=== PATIENT | female | born 1995 | race Caucasian/White ===

== ENCOUNTER 2016-02-23 16:51 | Emergency (ER) | payer OTHER ==
[2016-02-23 17:36] VITALS: O2SAT 99
[2016-02-23] MEDS ORDERED: AZITHROMYCIN 250 MG TAB PO ONE (18:05)
[2016-02-23 18:06] VITALS: BP 108/67; PULSE 64; RESP 16; TEMP 99
--- NOTE | 2016-02-23 18:09 | UCPHY ---
H & P Patient Type: New Chief Complaint Nursing Narrative: sore throat for 3 days Time Seen by Provider: 02/23/16 17:59 HPI/ROS: CHIEF COMPLAINT: Pharyngitis HISTORY OF PRESENT ILLNESS: The patient is a 21-year-old female who comes to the Urgent Care complaining of a sore throat, fevers, chills and painful swelling. No runny nose, cough difficulty breathing, no chest pain, no abdominal pain and vomiting. Nursing , no urinary symptoms. She states that her symptoms are similar to a few years ago when she had strep throat. She also has had mono in the past. REVIEW OF SYSTEMS: Constitutional: denies: chills, fever, recent illness, recent injury EENTM: See HPI Respiratory: denies: cough, shortness of breath Cardiac: denies: chest pain, irregular heart rate, lightheadedness, palpitations Gastrointestinal/Abdominal: denies: abdominal pain, diarrhea, nausea, vomiting, blood streaked stools Genitourinary: denies: dysuria, frequency, hematuria, pain Musculoskeletal: denies: joint pain, muscle pain Skin: denies: lesions, rash, jaundice, bruising Neurological: denies: headache, numbness, paresthesia, tingling, dizziness, weakness Hematologic/Lymphatic: denies: blood clots, easy bleeding, easy bruising Immunologic/allergic: denies: HIV/AIDS, transplant EXAM: GENERAL: Well-appearing, well-nourished and in no acute distress. HEAD: Atraumatic, normocephalic. EYES: Pupils equal round and reactive to light, extraocular movements intact, sclera anicteric, conjunctiva are normal. ENT: Purulent tonsils with mild swelling and erythema. NECK: Normal range of motion, supple without lymphadenopathy or JVD. LUNGS: Breath sounds clear to auscultation bilaterally and equal. No wheezes rales or rhonchi. HEART: Regular rate and rhythm without murmurs, rubs or gallops. ABDOMEN: Soft, nontender, normoactive bowel sounds. No guarding, no rebound. No masses appreciated. No splenomegaly. BACK: No CVA tenderness, no spinal tenderness, step-offs or deformities EXTREMITIES: Normal range of motion, no pitting or edema. No clubbing or cyanosis. NEUROLOGICAL: Cranial nerves II through XII grossly intact. Normal speech, normal gait. 5/5 strength, normal movement in all extremities, normal sensation PSYCH: Normal mood, normal affect. SKIN: Warm, dry, normal turgor, no visible rashes or lesions. Source: Patient Exam Limitations: No limitations - Personal History LMP (Females 10-55): 15-21 Days Ago Current Tetanus Diphtheria and Acellular Pertussis (TDAP): Yes Tetanus Vaccine Date: unsure - Medical/Surgical History Hx Asthma: No Hx Chronic Respiratory Disease: No Hx Diabetes: No Hx Cardiac Disease: No Hx Renal Disease: No Hx Cirrhosis: No Hx Alcoholism: No Hx HIV/AIDS: No Hx Splenectomy or Spleen Trauma: No Other PMH: depression/patient seen here on 07/15/14 for herpes simplex virus genitalia, strep throat - Family History Significant Family History: No pertinent family hx - Social History Smoking Status: Never smoked Alcohol Use: Sober Drug Use: None Constitutional: Initial Vital Signs Temperature (C) 36.9 C 02/23/16 17:31 Heart Rate 61 02/23/16 17:31 Respiratory Rate 12 02/23/16 17:31 Blood Pressure 105/59 L 02/23/16 17:31 O2 Sat (%) 99 02/23/16 17:31 O2 Delivery Mode Room Air Allergies/Adverse Reactions: No Known Allergies Allergy (Verified 02/23/16 17:30) Home Medications: Medication Instructions Recorded CeleXA 20 MG 07/15/14 Famciclovir [Famvir 250 MG (*)] 1 tab PO TID #20 tab 07/15/14 AZITHROMYCIN [Z-PACK] 250 mg PO DAILY #4 tab 02/23/16 Medical Decision Making ED Course/Re-evaluation: The patient's symptoms are consistent with strep throat. Rapid strep is negative but we have had any false negatives recently. She states that this feels similar to previous episodes of strep throat. Will start her on azithromycin. She is agreeable with this plan. She declines pain medication. We discussed indications for returning. Additional verbal discharge instructions given. Differential Diagnosis: Partial list of the Differential diagnosis considered include but were not limited to; strep throat, pharyngitis, abscess and although unlikely based on the history and physical exam, I also considered bronchitis, pneumonia, sepsis. I discussed these differential diagnoses and the plan with the patient as well as the usual and expected course. The patient understands that the diagnosis is provisional and that in medicine we are not always correct and that further workup is often warranted. Usual and customary warnings were given. All of the patient's questions were answered. The patient was instructed to return to the emergency department should the symptoms at all worsen or return, otherwise to followup with the physician as we discussed. - Data Points Laboratory Results: 02/23/16 02/23/16 Unknown 17:45 Group A Strep Screen NEGATIVE (NEGATIVE) Group A Strep DNA Pending Medications Given: Discontinued Medications Azithromycin (Zithromax) 500 mg PO EDNOW ONE PRN Reason: Protocol Stop: 02/23/16 18:06 Last Admin: 02/23/16 18:10 Dose: 500 mg Departure - Departure Disposition: Home, Routine, Self-Care Clinical Impression: Pharyngitis Qualifiers: Pharyngitis/tonsillitis etiology: unspecified etiology Qualifier Code: (J02.9) Acute pharyngitis, unspecified Condition: Fair Instructions: Pharyngitis (ED) Additional Instructions: You may call tomorrow to find out the results of the strep test. Referrals: Ml Wilder MD [Primary Care Provider] - As per Instructions Stand Alone Forms: Work Excuse Prescriptions: AZITHROMYCIN [Z-PACK] 250 mg PO DAILY #4 tab - PQRS PQRS Measurement: Not applicable
== END 2016-02-23 18:16 | disposition home or self-care (01) ==
LOC: CED 16:51
DX: J02.9 Acute pharyngitis, unspecified (principal); R50.9 Fever, unspecified
CPT/HCPCS: 87880-PO; 99204-PO; G0463-PO